=== PATIENT | female | born 1970 | race American Indian/Alaskan Native ===

== ENCOUNTER 2017-02-09 12:55 | Emergency (ER) | payer OTHER ==
[~2017-02-09 12:55] MED LIST: CIPRO PO; FLEXERIL PO; IBUPROFEN800 MG PO; KEFLEX PO; PHENERGAN25 MG PO; VICODIN 5/500 T1 TAB PO
== END 2017-02-09 14:04 | disposition home or self-care (01) ==
LOC: CFTX 12:55
DX: J02.9 Acute pharyngitis, unspecified (principal)
CPT/HCPCS: 87651; 99282; 99283